=== PATIENT | female | born 1965 | race Caucasian/White ===

== ENCOUNTER 2017-07-29 16:44 | Emergency (ER) | payer OTHER ==
[~2017-07-29] VITALS: Ht 162.6 cm; Wt 61.2 kg
[~2017-07-29 16:44] MED LIST: DILAUDID2 MG PO; ESCITALOPRAM10 MG PO; ESCITALOPRAM20 MG PO; FIORICET 325 MG1 TAB PO; FLUOXETINE HCL20 M2 PO; LAXATIVE PO; LIORESAL 10MG T10 MG PO; NORCO 325 MG-51 TAB PO; PROZAC40 M1 PO; ROBAXIN 500MG500 MG PO; TRAMADOL HYDROC50 MG PO; TRAMADOL50 MG PO; TRAZODONE50 MG PO; VALIUM5 M1 PO; ZOFRAN 4 MG TABL4 MG PO
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
--- NOTE | 2017-07-29 18:52 | RADIOLOGY REPORT ---
EXAMINATION: XR CHEST CLINICAL INFORMATION: Cough. Right-sided rhonchi. COMPARISON: Chest x-ray 01/02/2016 TECHNIQUE: 2 views of the chest were obtained. FINDINGS: Lungs are clear. No pulmonary vascular congestion. There is no pleural effusion. The heart size is normal. The cardiac and mediastinal contours are normal. There are multilevel degenerative changes of dorsal spine. Orthopedic plate and screw at lower cervical spine. IMPRESSION: Unremarkable examination.
[2017-07-29 19:18] LABS: ABSOLUTE BASOPHIL COUNT 0 /CUMM (0.0-0.2); ABSOLUTE EOSINOPHIL COUNT 0.1 /CUMM (0.0-0.7); ABSOLUTE GRANULOCYTE CT 8.6 /CUMM (1.4-6.5); ABSOLUTE LYMPH COUNT 2.2 /CUMM (1.2-3.4); ABSOLUTE MONOCYTE COUNT 0.8 /CUMM (0.10-0.60); BASOPHIL % 0.4 % (0.0-2.0); EOSINOPHIL % 1.2 % (0-5); GRANULOCYTE % 73.3 % (42.2-75.2); HEMATOCRIT 36.1 % (37-47); MEAN CORPUSCULAR HGB 30.7 PG (27.0-31.0); MEAN CORPUSCULAR HGB CONC 33.5 G/DL (33.0-37.0); MEAN CORPUSCULAR VOLUME 91.6 FL (81.0-99.0); MEAN PLATELET VOLUME 8.8 FL (7.4-10.4); PLATELET COUNT 375 /CUMM (130-400); RBC DISTRIBUTION WIDTH 13.4 % (11.5-14.5); RED BLOOD CELL CT 3.94 /CUMM (4.20-5.40); WHITE BLOOD CELL COUNT 11.7 /CUMM (4.8-10.8)
[2017-07-29] MEDS ORDERED: VENTOLIN HFA18 GM INH (20:44)
[2017-07-29] MEDS ORDERED: AZITHROMYCIN250 M1 PO (20:44)
[2017-07-29] MEDS ORDERED: MEDROL4 M2 PO (20:44)
[2017-07-29 20:53] VITALS: BP 128/79
== END 2017-07-29 21:13 ==
LOC: ERH 16:44
PROVIDERS: Internal Medicine
DX: J45.909 Unspecified asthma, uncomplicated (principal); J20.9 Acute bronchitis, unspecified; R06.2 Wheezing; F17.210 Nicotine dependence, cigarettes, uncomplicated; M54.9 Dorsalgia, unspecified; M54.2 Cervicalgia
CPT/HCPCS: 1263; 71046; 87804; 87804-59; 96374; 96375; J2930